=== PATIENT | male | born 1950 | race Caucasian/White ===

== ENCOUNTER 2019-06-12 17:52 | Emergency (ER) | payer MEDICARE ==
[~2019-06-12] VITALS: Ht 177.8 cm; Wt 113.4 kg
--- NOTE | ~2019-06-12 | EKG ---
[place], [place] ELECTROCARDIOGRAM REPORT NAME: ROBYN CASSIDY UNIT #: [id number] ROOM: DOCTOR: EPIPHANY DRAFT REPORT BIRTHDATE: [birth year] [facility] Test Date: 2019-06-12 Test Time: 18:27:38 Pat Name: ROBYN CASSIDY Department: Room: Gender: M [employer]argo Worker: JUAN : 1950 Requested By: SANDRA CARDENAS Order Number: [id number] Reading MD: Richard Hui MD Measurements Intervals [place] Rate: 82 P: 2 OR: 148 QRS: 31 QRSD: 89 T: 67 QT: 401 QTc: 469 Interpretive Statements Sinus rhythm Low voltage, extremity leads Electronically Signed On 06-13-2019 4:31:27 PST by Richard Hui MD CM:EKGRPT:ELECTROCARDIOGRAM REPORT [id number] SANDRA MENDOZA DRAFT REPORT SANDRA CARDENAS DO
[2019-06-12 18:23] LABS: HEMATOCRIT 38.8 % (42.0-52.0); HEMOGLOBIN 11.5 g/dl (14.0-18.0); MEAN CELL VOLUME 95.3 fl (80.0-94.0); MEAN CORPUSCULAR HGB 28.3 pg (27.0-31.0); MEAN CORPUSCULAR HGB CONC 29.6 g/dl (33.0-37.0); MEAN PLATELET VOLUME 10.1 fl (9.6-12.3); NUCLEATED RED BLOOD CELL 0.1 10*3/uL (0.0-0.0); PLATELET COUNT AUTOMATED 108 10*3/uL (130-400); RED BLOOD COUNT 4.07 10*6/uL (4.50-5.90); RED CELL DISTRI WIDTH 15.7 % (0-14.5); WHITE BLOOD COUNT 6.3 10*3/uL (4.8-10.8)
[2019-06-12 18:34] LABS: ACT PARTIAL THROMBO TIME 34.1 SECONDS (20.0-32.1); INTERNATIONAL NORM RATIO 2.7 (2.0-3.5)
[2019-06-12 18:41] LABS: ALBUMIN 2.9 gm/dl (3.1-4.5); CREATININE 2.01 mg/dL (0.70-1.30); POTASSIUM 4.4 mmol/L (3.5-5.1); TOTAL PROTEIN 6.5 gm/dL (6.4-8.2); TROPONIN I 0.044 ng/ml (<0.045)
[2019-06-12 18:43] LABS: TOTAL CELLS COUNTED 100 #CELLS
[2019-06-12 18:44] LABS: BURR CELLS FEW; PLATELET SUFFICIENCY LOW (NORMAL)
== END 2019-06-12 23:43 | disposition expired ==
LOC: ED 17:52
PROVIDERS: Emergency Medicine
DX: I46.9 Cardiac arrest, cause unspecified (principal); V49.88XA Car occupant (driver) (passenger) injured in other specified transport accidents, initial encounter; Y93.89 Activity, other specified; Y92.413 State road as the place of occurrence of the external cause; Y99.9 Unspecified external cause status